=== PATIENT | male | born 1970 | race Caucasian/White ===

== ENCOUNTER 2022-12-05 23:32 | Emergency (ER) | payer OTHER ==
[~2022-12-05] VITALS: Ht 182.9 cm; Wt 79.4 kg
[2022-12-06] MEDS ORDERED: LIDOCAINE 1%-EPI 1:100,000 20 ML VIAL ONE (00:28)
[2022-12-06] MEDS ORDERED: SODIUM BICARBONATE 4.2 % (NEUT) 5 ML VIAL ONE (00:29)
[2022-12-06] MEDS ORDERED: SODIUM BICARBONATE 4.2 % (NEUT) 5 ML VIAL TP ONE (00:30)
[2022-12-06] MEDS ORDERED: ONDANSETRON ODT 4 MG TAB.RAPDIS SL ONE (00:30)
[2022-12-06] MEDS ORDERED: LIDOCAINE 1%-EPI 1:100,000 20 ML VIAL IJ ONE (00:30)
[2022-12-06] MEDS ORDERED: ONDANSETRON ODT 4 MG TAB.RAPDIS ONE (01:00)
[2022-12-06 01:13] VITALS: BP 122/66
--- NOTE | 2022-12-06 01:13 | NUR ---
Patient discharged to home in stable condition with taking patient home. Written and verbal after care instructions given. Patient verbalizes understanding of instructions. Stressed follow up or return to ER for worsening s/s.
== END 2022-12-06 01:14 | disposition home or self-care (01) ==
LOC: ER 23:56
DX: R55 Syncope and collapse (principal); T81.33XA Disruption of traumatic injury wound repair, initial encounter
CPT/HCPCS: 12001; 99283; 93005; J3490 ×2; A4663; Q0162